=== PATIENT | male | born 1960 | race Two or more races ===

== ENCOUNTER 2017-06-08 05:53 | Inpatient (IN) | payer MEDICAID ==
[2017-06-08] VITALS (15 sets, daily range): BP systolic 42–170; BP diastolic 65–98
[~2017-06-08] VITALS: Ht 152.4 cm; Wt 47.0 kg
[2017-06-08] MEDS ORDERED: Bupivacaine 0.5% Inj 30 ml vial INJ ONE (06:46)
[2017-06-08] MEDS ORDERED: IBUPROFEN600 M1 PO (06:49)
[2017-06-08] MEDS ORDERED: Surgicel 4in x 8in TOPIC ONE (07:26)
[2017-06-08] MEDS ORDERED: fentaNYL 100 mcg/2 mL IV ONE (07:30)
[2017-06-08] MEDS ORDERED: Propofol 200mg/20ml IV ONE (07:30)
[2017-06-08] MEDS ORDERED: Midazolam 2mg/2ml Inj ONE (07:30)
[2017-06-08] MEDS ORDERED: Lidocaine 1% MPF 10mg/ml 5ml ONE (07:30)
[2017-06-08] MEDS ORDERED: Glycopyrrolate 0.2mg/ml 1ml Vial ONE (07:30)
[2017-06-08] MEDS ORDERED: Sodium Chloride 10ml vial INJ ONE (07:30)
[2017-06-08] MEDS ORDERED: Zemuron 50mg/5ml Inj IV ONE (07:30)
[2017-06-08] MEDS ORDERED: LR 1000ml 1,000 ML IVLG SCH (07:40)
--- NOTE | 2017-06-08 07:40 | Anethesia Preoperative Eval ---
Anesthesia Pre-op PMH/ROS General Date of Evaluation: Jun 08, 2017 Time of Evaluation: 07:36 Anesthesiologist: Armin ASA Score: ASA 2 Mallampati Score Class I : Soft palate, uvula, fauces, pillars visible Class II: Soft palate, uvula, fauces visible Class III: Soft palate, base of uvula visible Class IV: Only hard plate visible Mallampati Classification: Class II Surgeon: Sukh Diagnosis: R atrofic kidney Surgical Procedure: R laparoscopic nephrectomy Anesthesia History: none Social History: current smoker Family History: no anesthesia problems Allergies: Coded Allergies: PENICILLINS (Verified Allergy, Severe, hives, 06/08/17) Past Medical History Cardiovascular: Denies: HTN, CAD, CO, valve dz, arrhythmia, other Pulmonary: Denies: asthma, COPD, DARIEL, other Gastrointestinal/Genitourinary: Reports: GERD, other - kidney stones, Denies: CRI, ESRD Neurologic/Psychiatric: Denies: dementia, CVA, depression/anxiety, TIA, other Endocrine: 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 Exam Physician Exam Last Vital Signs Date Time Temp Pulse Resp B/P (MAP) Pulse Ox O2 Delivery O2 Flow Rate FiO2 06/08/17 06:17 97.7 59 17 128/84 96 Room Air Constitutional: NAD Neurologic: CN 2-12 intact Cardiovascular: RRR, no M/R/G Respiratory: CTA Gastrointestinal: S/NT/ND Airway Exam Mallampati Score: Class II MO: full Neck: flexible ROM: full Teeth: missing Dentures: no upper, no lower Anesthesia Pre-op A/P Labs see chart Studies Pre-op Studies: EKG - NSR Risk Assessment & Plan Assessment: ASA 2 Plan: GA with ETT Status Change Before Surgery: No Pre-Antibiotics Drug: Levoquine 500mg Given Within 1 Hr of Incision: Yes Time Given: 07:52 ALYCE SINGER M.D. Jun 08, 2017 07:39
[2017-06-08] MEDS ORDERED: Meperidine 50mg/ml Inj(FOR RIGORS ONLY) IV PRN (07:45)
[2017-06-08] MEDS ORDERED: DiphenhydrAMINE 50mg/ml Inj IVP PRN (07:45)
[2017-06-08] MEDS ORDERED: Metoclopramide 10mg/2ml Inj IVP PRN (07:45)
[2017-06-08] MEDS ORDERED: Midazolam 2mg/2ml Inj IVP PRN (07:45)
[2017-06-08] MEDS ORDERED: Hydromorphone 0.5mg/0.5ml inj IVP PRN (07:45)
[2017-06-08] MEDS ORDERED: Ketorolac 30mg Inj IV PRN (07:45)
--- NOTE | 2017-06-08 07:50 | Pre-Procedure Note/Attestation ---
Pre-Procedure Note/Attestation Complete Prior to Procedure Planned Procedure: right Procedure Narrative: Laparoscopic Nephrectomy Indications for Procedure Pre-Operative Diagnosis: renal stone Attestation I attest that I discussed the nature of the procedure; its benefits; risks and complications; and alternatives (and the risks and benefits of such alternatives ), prior to the procedure, with the patient (or the patient's legal dermatology sales representative). I attest that, if there was a reasonable possibility of needing a blood transfusion, the patient (or the patient's legal dermatology sales representative) was given the [facility] standardized written summary, pursuant to the [employer] Blood Safety Act ([place] Health and Safety Code # 1645, as amended). I attest that I re-evaluated the patient just prior to the surgery and that there has been no change in the patient's H&P, except as documented below: Edwar Luz MD Jun 08, 2017 07:50
--- NOTE | 2017-06-08 07:51 | Brief Operative Note ---
Immediate Post Operative Note Operative Note Pre-op Diagnosis: renal stone Procedure: right laparoscopic nephrectomy Post-op Diagnosis: same Post-op Diagnosis: same as pre-op Surgeon: Rohit Luz Anesthesia: general Specimen: yes Complications: none Condition: stable Fluids: 500 Estimated Blood Loss: minimal Implant(s) used?: No Edwar Luz MD Jun 08, 2017 07:51
--- NOTE | 2017-06-08 08:03 | Pre-Procedure Note/Attestation ---
Pre-Procedure Note/Attestation Complete Prior to Procedure Planned Procedure: not applicable Procedure Narrative: radical laparoscopic nephrectomy Indications for Procedure Pre-Operative Diagnosis: renal stone Attestation I attest that I discussed the nature of the procedure; its benefits; risks and complications; and alternatives (and the risks and benefits of such alternatives ), prior to the procedure, with the patient (or the patient's legal in store representative). I attest that, if there was a reasonable possibility of needing a blood transfusion, the patient (or the patient's legal in store representative) was given the [facility] standardized written summary, pursuant to the [employer] Blood Safety Act ([place] Health and Safety Code # 1645, as amended). I attest that I re-evaluated the patient just prior to the surgery and that there has been no change in the patient's H&P, except as documented below: Edwar Luz MD Jun 08, 2017 08:03
[2017-06-08] MEDS ORDERED: NS Irrig 1000ml IRRIG ONE (08:15)
[2017-06-08 10:44] LABS: BASOPHILS % (AUTO) 0.3 % (0.0-2.0); LYMPHOCYTES % (AUTO) 10.8 % (20.0-45.0); MEAN CORPUSCULAR HGB CONC 33.6 G/DL (32.0-36.0); MEAN CORPUSCULAR VOLUME 98 FL (80-99); MONOCYTES % (AUTO) 3.7 % (1.0-10.0); NEUTROPHILS % (AUTO) 84.2 % (45.0-75.0); PLATELET COUNT 241 K/UL (150-450); RED CELL DISTRIBUTION WIDTH 12.2 % (11.6-14.8); WHITE BLOOD COUNT 13.9 K/UL (4.8-10.8)
[2017-06-08 10:52] LABS: ANION GAP 6 mmol/L (5-15); CALCIUM 8.5 MG/DL (8.5-10.1); CARBON DIOXIDE 30 MMOL/L (21-32); CHLORIDE 105 MMOL/L (98-107); CREATININE 1.2 MG/DL (0.55-1.30); GLOMERULAR FILTRATION RATE > 60 mL/min (>60); POTASSIUM 3.9 MMOL/L (3.5-5.1); SODIUM 140 MMOL/L (136-145)
[2017-06-08] MEDS: D5 1/2NS w/KCl 20mEq 1,000 ML IV SCH (12:51)
[2017-06-08] MEDS ORDERED: ceFAZolin sod 1 GM in D5W 55 ML IV SCH (14:00)
--- NOTE | 2017-06-08 15:15 | History and Physical ---
History of Present Illness General Date patient seen: Jun 08, 2017 Reason for Hospitalization: renal failure large stagorn renal calculi Present Illness HPI 56-year old gentle man with pmhx nonfunctioning right kidney due to the large staghorn calculi and history of recurrent urinary tract infections presents to [facility] for evaluation for elective surgery namely a right kidney nephrectomy. The patient denies all other past medical history, denies diabetes and hypertension. 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 decision maker DAVID GUZMAN -[employer] IN [employer] Resuscitation status Full Code Advanced Directive on File Review of Systems Constitutional: Reports: no symptoms Eye: Reports: no symptoms ENT: Reports: no symptoms Respiratory: Reports: no symptoms Cardiovascular: Reports: no symptoms Gastrointestinal: Reports: no symptoms Genitourinary: Reports: dysuria, pain, urgency Musculoskeletal: Reports: no symptoms Skin: Reports: no symptoms Psychiatric: Reports: no symptoms Neurological: Reports: no symptoms Endocrine: Reports: no symptoms Hematologic/Lymphatic: Reports: no symptoms Physical Exam General Appearance: no apparent distress Lines, tubes and drains: peripheral HEENT: normocephalic, atraumatic, PERRL Neck: non-tender, normal alignment, supple, normal inspection Respiratory/Chest: chest wall non-tender, normal breath sounds, no respiratory distress, no accessory muscle use Breasts: no masses Cardiovascular/Chest: normal peripheral pulses, normal rate, regular rhythm, no JVD Abdomen: normal bowel sounds, non tender, soft, no organomegaly, no mass Genitourinary/Rectal: normal genital exam, normal rectal exam Extremities: normal range of motion, non-tender, normal inspection, no calf tenderness Skin Exam: normal pigmentation, warm/dry 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, no motor/sensory deficits Last 24 Hour Vital Signs Date Time Temp Pulse Resp B/P (MAP) Pulse Ox O2 Delivery O2 Flow Rate FiO2 06/08/17 12:00 97.9 60 18 132/89 100 Nasal Cannula 3.0 06/08/17 11:00 97.5 69 126/77 100 Nasal Cannula 3.0 06/08/17 10:55 64 15 42/92 100 Nasal Cannula 3.0 06/08/17 10:45 64 18 147/91 100 Nasal Cannula 3.0 06/08/17 10:30 64 20 139/90 100 Nasal Cannula 3.0 06/08/17 10:15 64 21 149/93 100 Nasal Cannula 3.0 06/08/17 10:00 60 20 163/96 100 Simple Mask 6.0 06/08/17 09:45 64 19 156/94 100 Simple Mask 6.0 06/08/17 09:30 71 20 164/97 100 Simple Mask 6.0 06/08/17 09:25 89 18 170/98 100 Simple Mask 6.0 06/08/17 09:18 97.8 76 22 162/84 100 Simple Mask 6.0 06/08/17 06:17 97.7 59 17 128/84 96 Room Air Intake and Output 06/08/17 06/09/17 19:00 07:00 Intake Total 100 ml Balance 100 ml Intake IV Total 100 ml Laboratory Tests Test 06/08/17 10:30 White Blood Count 13.9 K/UL (4.8-10.8) H Red Blood Count 4.70 M/UL (4.70-6.10) Hemoglobin 15.5 G/DL (14.2-18.0) Hematocrit 46.1 % (42.0-52.0) Mean Corpuscular Volume 98 FL (80-99) Mean Corpuscular Hemoglobin 33.0 PG (27.0-31.0) H Mean Corpuscular Hemoglobin Concent 33.6 G/DL (32.0-36.0) Red Cell Distribution Width 12.2 % (11.6-14.8) Platelet Count 241 K/UL (150-450) Mean Platelet Volume 7.0 FL (6.5-10.1) Neutrophils (%) (Auto) 84.2 % (45.0-75.0) H Lymphocytes (%) (Auto) 10.8 % (20.0-45.0) L Monocytes (%) (Auto) 3.7 % (1.0-10.0) Eosinophils (%) (Auto) 1.0 % (0.0-3.0) Basophils (%) (Auto) 0.3 % (0.0-2.0) Sodium Level 140 MMOL/L (136-145) Potassium Level 3.9 MMOL/L (3.5-5.1) Chloride Level 105 MMOL/L (98-107) Carbon Dioxide Level 30 MMOL/L (21-32) Anion Gap 6 mmol/L (5-15) Blood Urea Nitrogen 17 mg/dL (7-18) Creatinine 1.2 MG/DL (0.55-1.30) Estimat Glomerular Filtration Rate > 60 mL/min (>60) Glucose Level 136 MG/DL (74-106) H Calcium Level 8.5 MG/DL (8.5-10.1) Height (Feet): 5 Height (Inches): 0.00 Weight (Pounds): 103 Medications Current Medications Medications (Trade) Dose Ordered Sig/Yoli Route PRN Reason Start Time Stop Time Status Last Admin Dose Admin Acetaminophen (Tylenol) 650 mg Q4H PRN ORAL T>100.5 06/08/17 12:00 07/08/17 11:59 Acetaminophen (Tylenol) 650 mg Q6H PRN ORAL Mild Pain (Pain Scale 1-3) 06/08/17 12:00 07/08/17 11:59 Acetaminophen/ Hydrocodone Bitart ([place] 5/325) 1 tab Q4H PRN ORAL Moderate Pain (Pain Scale 4-6) 06/08/17 12:00 06/15/17 11:59 Dextrose/ Electrolytes 1,000 ml @ 100 mls/hr Q10H IV 06/08/17 13:00 07/08/17 12:59 06/08/17 12:51 Docusate Sodium (Colace) 100 mg TWICE A DAY ORAL 06/08/17 18:00 07/08/17 17:59 Hydromorphone HCl (Dilaudid) 1 mg Q3H PRN IVP SEV[ 06/08/17 12:00 06/15/17 11:59 Levofloxacin 100 ml @ 100 mls/hr Q24H IVPB 06/09/17 06:00 06/16/17 05:59 Temazepam (Restoril) 7.5 mg HSPRN PRN ORAL Insomnia 06/08/17 21:00 10/25/17 20:59 Assessment/Plan Status: stable, progressing Assessment/Plan Non functioning right kidney due to chronic staghorn calculi History of re-calcitrant and repeated urinary tract infection Plan Surgical consultation requested to evaluate and follow up Patient has elected for a right nephrectomy due to large staghorn calculi and non functioning right kidney Pain management Electrolyte replacement IV fluid hydration MADDIE NELSON Jun 08, 2017 15:15
[2017-06-08] MEDS: Docusate 100mg cap ORAL SCH (18:18)
[2017-06-08] MEDS ORDERED: Sodium Chloride 500ML 500 ML IV ONE ×2 (21:00→22:30)
[2017-06-09] VITALS (7 sets, daily range): BP systolic 120–156; BP diastolic 72–91
[2017-06-09] MEDS: Norco 5mg/325mg tab ORAL PRN ×2 (00:45→08:33)
[2017-06-09] MEDS: D5 1/2NS w/KCl 20mEq 1,000 ML IV SCH ×3 (00:47→21:21)
[2017-06-09] MEDS: Docusate 100mg cap ORAL SCH ×2 (08:33→18:05)
[2017-06-09 09:10] LABS: BASOPHILS % (AUTO) 0.5 % (0.0-2.0); EOSINOPHILS % (AUTO) 2.6 % (0.0-3.0); LYMPHOCYTES % (AUTO) 24.5 % (20.0-45.0); MEAN CORPUSCULAR HEMOGLOBIN 32.3 PG (27.0-31.0); MEAN CORPUSCULAR HGB CONC 32.9 G/DL (32.0-36.0); MEAN CORPUSCULAR VOLUME 98 FL (80-99); MEAN PLATELET VOLUME 7.1 FL (6.5-10.1); MONOCYTES % (AUTO) 7.3 % (1.0-10.0); PLATELET COUNT 218 K/UL (150-450); RED BLOOD COUNT 4.32 M/UL (4.70-6.10); RED CELL DISTRIBUTION WIDTH 12.3 % (11.6-14.8); WHITE BLOOD COUNT 7.4 K/UL (4.8-10.8)
--- NOTE | 2017-06-09 09:14 | Immediate Post-Op Evaluation ---
Immediate Post-Op Evalulation Immediate Post-Op Evalulation Procedure: Right Nephrectomy Date of Evaluation: Jun 09, 2017 Time of Evaluation: 09:00 IV Fluids: 1000 Blood Products: 0 Estimated Blood Loss: 50 Urinary Output: 0 Blood Pressure Systolic: 120 Blood Pressure Diastolic: 72 Pulse Rate: 78 Respiratory Rate: 14 O2 Sat by Pulse Oximetry: 99 Temperature (Fahrenheit): 98 Pain Score (1-10): 0 Nausea: No Vomiting: No Patient Status: awake, reacts, patent, extubated Hydration Status: adequate Bean Ramirez M.D. Jun 09, 2017 09:14
[2017-06-09 09:26] LABS: ALANINE AMINOTRANSFERASE 29 U/L (12-78); ALBUMIN/GLOBULIN RATIO 0.8 (1.0-2.7); ANION GAP 4 mmol/L (5-15); ASPARTATE AMINO TRANSFERASE 25 U/L (15-37); CALCIUM 7.8 MG/DL (8.5-10.1); CARBON DIOXIDE 30 MMOL/L (21-32); CHLORIDE 105 MMOL/L (98-107); CREATININE 1.2 MG/DL (0.55-1.30); GLOMERULAR FILTRATION RATE > 60 mL/min (>60); SODIUM 139 MMOL/L (136-145)
[2017-06-09 09:29] LABS: MAGNESIUM 1.9 MG/DL (1.8-2.4)
[2017-06-09] MEDS: HYDROmorphone 1mg/ml Carpuject IVP PRN ×2 (12:08→16:37)
[2017-06-09] MEDS ORDERED: Tubing IV Secondary IV ONE (15:41)
[2017-06-09] MEDS ORDERED: NS 500ML IV ONE (15:41)
[2017-06-09] MEDS: Hydromorphone 0.5mg/0.5ml inj IVP PRN (21:21)
--- NOTE | 2017-06-09 22:25 | Pulmonology Progress Note ---
Assessment/Plan Assessment/Plan Non functioning right kidney due to chronic staghorn calculi History of re-calcitrant and repeated urinary tract infection Plan Surgical consultation requested to evaluate and follow up Patient has elected for a right nephrectomy due to large staghorn calculi and non functioning right kidney Pain management Electrolyte replacement IV fluid hydration Subjective ROS Limited/Unobtainable: No Neurologic: Reports: weakness Allergies: Coded Allergies: PENICILLINS (Verified Allergy, Severe, hives, 06/08/17) Objective Last 24 Hour Vital Signs Date Time Temp Pulse Resp B/P (MAP) Pulse Ox O2 Delivery O2 Flow Rate FiO2 06/09/17 20:00 97.8 68 18 154/89 94 Room Air 06/09/17 16:00 97.5 60 20 156/91 99 Room Air 06/09/17 12:53 97.7 57 20 147/75 100 Room Air 3.0 06/09/17 09:14 78 14 99 06/09/17 08:00 97.2 59 19 132/82 99 Room Air 06/09/17 04:00 98.1 64 19 120/72 100 Nasal Cannula 3.0 06/09/17 00:00 97.6 68 18 133/79 99 Nasal Cannula 3.0 Intake and Output 06/09/17 06/10/17 19:00 07:00 Intake Total 1100 ml Balance 1100 ml Intake IV Total 1100 ml General Appearance: no acute distress HEENT: normocephalic, atraumatic, PERRL Respiratory/Chest: chest wall non-tender, normal breath sounds, no respiratory distress Cardiovascular: normal peripheral pulses, normal rate, regular rhythm, no JVD Abdomen: normal bowel sounds, soft, non tender, no organomegaly, non distended Genitourinary: normal external genitalia Extremities: no cyanosis Skin: lesions Neurologic/Psychiatric: 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 normal, no motor/sensory deficits Laboratory Tests 06/09/17 08:55: White Blood Count 7.4, Red Blood Count 4.32L, Hemoglobin 13.9L, Hematocrit 42.4 , Mean Corpuscular Volume 98, Mean Corpuscular Hemoglobin 32.3H, Mean Corpuscular Hemoglobin Concent 32.9, Red Cell Distribution Width 12.3, Platelet Count 218, Mean Platelet Volume 7.1, Neutrophils (%) (Auto) 65.0, Lymphocytes (% ) (Auto) 24.5, Monocytes (%) (Auto) 7.3, Eosinophils (%) (Auto) 2.6, Basophils ( %) (Auto) 0.5, Sodium Level 139, Potassium Level 4.0, Chloride Level 105, Carbon Dioxide Level 30, Anion Gap 4L, Blood Urea Nitrogen 13, Creatinine 1.2, Estimat Glomerular Filtration Rate > 60, Glucose Level 128H, Calcium Level 7.8L , Phosphorus Level 3.0, Magnesium Level 1.9, Total Bilirubin 1.0, Aspartate Amino Transf (AST/SGOT) 25, Alanine Aminotransferase (ALT/SGPT) 29, Alkaline Phosphatase 57, Total Protein 6.0L, Albumin 2.7L, Globulin 3.3, Albumin/ Globulin Ratio 0.8L Current Medications Medications (Trade) Dose Ordered Sig/Yoli Route PRN Reason Start Time Stop Time Status Last Admin Dose Admin Acetaminophen (Tylenol) 650 mg Q4H PRN ORAL T>100.5 06/08/17 12:00 07/08/17 11:59 Acetaminophen (Tylenol) 650 mg Q6H PRN ORAL Mild Pain (Pain Scale 1-3) 06/08/17 12:00 07/08/17 11:59 Acetaminophen/ Hydrocodone Bitart ([place] 5/325) 1 tab Q4H PRN ORAL Moderate Pain (Pain Scale 4-6) 06/08/17 12:00 06/15/17 11:59 06/09/17 08:33 Dextrose/ Electrolytes 1,000 ml @ 100 mls/hr Q10H IV 06/08/17 13:00 07/08/17 12:59 06/09/17 21:21 Docusate Sodium (Colace) 100 mg TWICE A DAY ORAL 06/08/17 18:00 07/08/17 17:59 06/09/17 18:05 Hydromorphone HCl (Dilaudid) 1 mg Q3H PRN IVP SEVERE PAIN 06/09/17 20:30 06/16/17 20:29 06/09/17 21:21 Levofloxacin 50 ml @ 50 mls/hr Q24H IVPB 06/10/17 06:00 06/17/17 05:59 Temazepam (Restoril) 7.5 mg HSPRN PRN ORAL Insomnia 06/08/17 21:00 06/15/17 20:59 MADDIE NELSON 19, 2017 22:25
[2017-06-10] MEDS: Norco 5mg/325mg tab ORAL PRN ×3 (02:14→19:55)
[2017-06-10 04:00] VITALS: BP 154/91
[2017-06-10] MEDS: D5 1/2NS w/KCl 20mEq 1,000 ML IV SCH (05:00)
[2017-06-10] MEDS: Levofloxacin 250mg/D5W 50ml IVPB SCH (05:16)
--- NOTE | 2017-06-10 07:40 | Pulmonology Progress Note ---
Assessment/Plan Assessment/Plan ASSESSMENT nonfunctioning R kidney with large staghorn recurrent UTI s/p R radical lap nephrectomy PLAN OF CARE MS floor s/p IVF abx pain management full liquid diet, monitor tolerance and advance as tolerated OOB as tolerated PT/OT IS while in bed Monitor voiding Wound care DVT prophylaxis bowel regimen Dulcolax already added by surgeon dc plan probably in am Subjective Allergies: Coded Allergies: PENICILLINS (Verified Allergy, Severe, hives, 06/08/17) Subjective leukocytosis resolved, afebrile voiding freely tolerates FL diet no BM yet Objective Last 24 Hour Vital Signs Date Time Temp Pulse Resp B/P (MAP) Pulse Ox O2 Delivery O2 Flow Rate FiO2 06/10/17 04:00 98.4 65 16 154/91 96 Room Air 06/09/17 23:57 97.4 66 16 153/86 94 Room Air 06/09/17 20:00 97.8 68 18 154/89 94 Room Air 06/09/17 16:00 97.5 60 20 156/91 99 Room Air 06/09/17 12:53 97.7 57 20 147/75 100 Room Air 3.0 06/09/17 09:14 78 14 99 06/09/17 08:00 97.2 59 19 132/82 99 Room Air General Appearance: no acute distress HEENT: normocephalic, atraumatic, anicteric, mucous membranes moist, PERRL Respiratory/Chest: chest wall non-tender, lungs clear, normal breath sounds, no accessory muscle use Cardiovascular: normal peripheral pulses, normal rate, no JVD Abdomen: normal bowel sounds, soft, non tender - mild distention, no organomegaly Extremities: no edema Neurologic/Psychiatric: no motor/sensory deficits, alert, oriented x 3, responsive Musculoskeletal: normal muscle bulk Laboratory Tests 06/09/17 08:55: White Blood Count 7.4, Red Blood Count 4.32L, Hemoglobin 13.9L, Hematocrit 42.4 , Mean Corpuscular Volume 98, Mean Corpuscular Hemoglobin 32.3H, Mean Corpuscular Hemoglobin Concent 32.9, Red Cell Distribution Width 12.3, Platelet Count 218, Mean Platelet Volume 7.1, Neutrophils (%) (Auto) 65.0, Lymphocytes (% ) (Auto) 24.5, Monocytes (%) (Auto) 7.3, Eosinophils (%) (Auto) 2.6, Basophils ( %) (Auto) 0.5, Sodium Level 139, Potassium Level 4.0, Chloride Level 105, Carbon Dioxide Level 30, Anion Gap 4L, Blood Urea Nitrogen 13, Creatinine 1.2, Estimat Glomerular Filtration Rate > 60, Glucose Level 128H, Calcium Level 7.8L , Phosphorus Level 3.0, Magnesium Level 1.9, Total Bilirubin 1.0, Aspartate Amino Transf (AST/SGOT) 25, Alanine Aminotransferase (ALT/SGPT) 29, Alkaline Phosphatase 57, Total Protein 6.0L, Albumin 2.7L, Globulin 3.3, Albumin/ Globulin Ratio 0.8L Current Medications Medications (Trade) Dose Ordered Sig/Yoli Route PRN Reason Start Time Stop Time Status Last Admin Dose Admin Acetaminophen (Tylenol) 650 mg Q4H PRN ORAL T>100.5 06/08/17 12:00 07/08/17 11:59 Acetaminophen (Tylenol) 650 mg Q6H PRN ORAL Mild Pain (Pain Scale 1-3) 06/08/17 12:00 07/08/17 11:59 Acetaminophen/ Hydrocodone Bitart ([place] 5/325) 1 tab Q4H PRN ORAL Moderate Pain (Pain Scale 4-6) 06/08/17 12:00 06/15/17 11:59 06/10/17 02:14 Dextrose/ Electrolytes 1,000 ml @ 100 mls/hr Q10H IV 06/08/17 13:00 07/08/17 12:59 06/09/17 21:21 Docusate Sodium (Colace) 100 mg TWICE A DAY ORAL 06/08/17 18:00 07/08/17 17:59 06/09/17 18:05 Hydromorphone HCl (Dilaudid) 1 mg Q3H PRN IVP SEVERE PAIN 06/09/17 20:30 06/16/17 20:29 06/09/17 21:21 Levofloxacin 50 ml @ 50 mls/hr Q24H IVPB 06/10/17 06:00 06/17/17 05:59 06/10/17 05:16 Temazepam (Restoril) 7.5 mg HSPRN PRN ORAL Insomnia 06/08/17 21:00 06/15/17 20:59 Anu Sullivan NP ([facility]) Jun 10, 2017 07:40
[2017-06-10 07:57] LABS: BASOPHILS % (AUTO) 0.7 % (0.0-2.0); EOSINOPHILS % (AUTO) 2.2 % (0.0-3.0); LYMPHOCYTES % (AUTO) 25.4 % (20.0-45.0); MEAN CORPUSCULAR HEMOGLOBIN 33.4 PG (27.0-31.0); MEAN CORPUSCULAR HGB CONC 34.4 G/DL (32.0-36.0); MEAN CORPUSCULAR VOLUME 97 FL (80-99); MEAN PLATELET VOLUME 7.5 FL (6.5-10.1); MONOCYTES % (AUTO) 9.2 % (1.0-10.0); NEUTROPHILS % (AUTO) 62.5 % (45.0-75.0); PLATELET COUNT 198 K/UL (150-450); RED BLOOD COUNT 4.12 M/UL (4.70-6.10); WHITE BLOOD COUNT 8.1 K/UL (4.8-10.8)
[2017-06-10 08:00] VITALS: BP 156/98
[2017-06-10] MEDS: Docusate 100mg cap ORAL SCH ×2 (08:02→18:20)
[2017-06-10] MEDS: Hydromorphone 0.5mg/0.5ml inj IVP PRN (08:03)
[2017-06-10 08:21] LABS: ALANINE AMINOTRANSFERASE 27 U/L (12-78); ALBUMIN/GLOBULIN RATIO 0.8 (1.0-2.7); ANION GAP 3 mmol/L (5-15); ASPARTATE AMINO TRANSFERASE 23 U/L (15-37); CALCIUM 8.5 MG/DL (8.5-10.1); CARBON DIOXIDE 32 MMOL/L (21-32); CHLORIDE 104 MMOL/L (98-107); CREATININE 1.1 MG/DL (0.55-1.30); CRP QUANT 4.5 mg/dL (0.00-0.90); GLOMERULAR FILTRATION RATE > 60 mL/min (>60); PHOSPHORUS 2.6 MG/DL (2.5-4.9); SODIUM 138 MMOL/L (136-145); TOTAL PROTEIN 6.6 G/DL (6.4-8.2)
[2017-06-10 09:30] LABS: ERYTHROCYTE SEDIMENTATION RATE 47 MM/HR (0-20)
[2017-06-10 12:00] VITALS: BP 166/97
[2017-06-10 16:00] VITALS: BP 148/89
[2017-06-10 20:00] VITALS: BP 159/98
[2017-06-11] VITALS: BP 149/86
[2017-06-11 04:00] VITALS: BP 155/96
[2017-06-11] MEDS: Levofloxacin 250mg/D5W 50ml IVPB SCH (05:23)
--- NOTE | 2017-06-11 07:05 | Pulmonology Progress Note ---
Assessment/Plan Assessment/Plan ASSESSMENT nonfunctioning R kidney with large staghorn recurrent UTI s/p R radical lap nephrectomy PLAN OF CARE MS floor s/p IVF abx pain management tolerates diet OOB ambulating voiding freely s discomfort PT/OT IS while in bed Wound care DVT prophylaxis bowel regimen discussed with surgeon dc today outpt fup with surgeon script provided for analgesic and stool softener discussed and evaluated by supervising physician Subjective Allergies: Coded Allergies: PENICILLINS (Verified Allergy, Severe, hives, 06/08/17) Subjective leukocytosis resolved, afebrile voiding freely tolerates diet ambulates Objective Last 24 Hour Vital Signs Date Time Temp Pulse Resp B/P (MAP) Pulse Ox O2 Delivery O2 Flow Rate FiO2 06/11/17 04:00 97.2 67 18 155/96 94 Room Air 06/11/17 00:00 97.4 65 17 149/86 94 Room Air 06/10/17 22:21 96 Nasal Cannula 2.0 28 06/10/17 22:21 Nasal Cannula 2.0 28 06/10/17 20:00 97.8 67 19 159/98 95 Room Air 06/10/17 16:00 97.9 62 19 148/89 93 Room Air 06/10/17 12:00 97.2 65 20 166/97 94 Room Air 06/10/17 08:02 97 Nasal Cannula 2.0 28 06/10/17 08:01 Nasal Cannula 2.0 28 06/10/17 08:00 97.9 67 20 156/98 96 Room Air Objective General Appearance: no acute distress HEENT: normocephalic, atraumatic, anicteric, mucous membranes moist, PERRL Respiratory/Chest: chest wall non-tender, lungs clear, normal breath sounds, no accessory muscle use Cardiovascular: normal peripheral pulses, normal rate, no JVD Abdomen: normal bowel sounds, soft, non tender - mild distention, no organomegaly Extremities: no edema Neurologic/Psychiatric: no motor/sensory deficits, alert, oriented x 3, responsive Musculoskeletal: normal muscle bulk Laboratory Tests 06/10/17 07:15: White Blood Count 8.1, Red Blood Count 4.12L, Hemoglobin 13.8L, Hematocrit 40.0L , Mean Corpuscular Volume 97, Mean Corpuscular Hemoglobin 33.4H, Mean Corpuscular Hemoglobin Concent 34.4, Red Cell Distribution Width 12.0, Platelet Count 198, Mean Platelet Volume 7.5, Neutrophils (%) (Auto) 62.5, Lymphocytes (% ) (Auto) 25.4, Monocytes (%) (Auto) 9.2, Eosinophils (%) (Auto) 2.2, Basophils ( %) (Auto) 0.7, Erythrocyte Sedimentation Rate 47H, Sodium Level 138, Potassium Level 4.0, Chloride Level 104, Carbon Dioxide Level 32, Anion Gap 3L, Blood Urea Nitrogen 8, Creatinine 1.1, Estimat Glomerular Filtration Rate > 60, Glucose Level 117H, Calcium Level 8.5, Phosphorus Level 2.6, Magnesium Level 2.0 , Total Bilirubin 0.6, Aspartate Amino Transf (AST/SGOT) 23, Alanine Aminotransferase (ALT/SGPT) 27, Alkaline Phosphatase 59, C-Reactive Protein, Quantitative 4.5H, Total Protein 6.6, Albumin 3.0L, Globulin 3.6, Albumin/ Globulin Ratio 0.8L Current Medications Medications (Trade) Dose Ordered Sig/Yoli Route PRN Reason Start Time Stop Time Status Last Admin Dose Admin Acetaminophen (Tylenol) 650 mg Q4H PRN ORAL T>100.5 06/08/17 12:00 07/08/17 11:59 Acetaminophen (Tylenol) 650 mg Q6H PRN ORAL Mild Pain (Pain Scale 1-3) 06/08/17 12:00 07/08/17 11:59 Acetaminophen/ Hydrocodone Bitart ([place] 5/325) 1 tab Q4H PRN ORAL Moderate Pain (Pain Scale 4-6) 06/08/17 12:00 06/15/17 11:59 06/10/17 19:55 Docusate Sodium (Colace) 100 mg TWICE A DAY ORAL 06/08/17 18:00 07/08/17 17:59 06/10/17 18:20 Hydromorphone HCl (Dilaudid) 1 mg Q3H PRN IVP SEVERE PAIN 06/09/17 20:30 06/16/17 20:29 06/10/17 08:03 Levofloxacin 50 ml @ 50 mls/hr Q24H IVPB 06/10/17 06:00 06/17/17 05:59 06/11/17 05:23 Temazepam (Restoril) 7.5 mg HSPRN PRN ORAL Insomnia 06/08/17 21:00 06/15/17 20:59 Nate ([facility])Anu NP Jun 11, 2017 07:05
[2017-06-11 08:15] LABS: BASOPHILS % (AUTO) 0.6 % (0.0-2.0); EOSINOPHILS % (AUTO) 3.6 % (0.0-3.0); LYMPHOCYTES % (AUTO) 22.1 % (20.0-45.0); MEAN CORPUSCULAR HEMOGLOBIN 31.9 PG (27.0-31.0); MEAN CORPUSCULAR HGB CONC 32.9 G/DL (32.0-36.0); MEAN CORPUSCULAR VOLUME 97 FL (80-99); MEAN PLATELET VOLUME 7.4 FL (6.5-10.1); MONOCYTES % (AUTO) 8.5 % (1.0-10.0); NEUTROPHILS % (AUTO) 65.3 % (45.0-75.0); PLATELET COUNT 232 K/UL (150-450); RED BLOOD COUNT 4.68 M/UL (4.70-6.10); WHITE BLOOD COUNT 6.6 K/UL (4.8-10.8)
[2017-06-11 08:30] VITALS: BP 148/85
[2017-06-11 08:34] LABS: ANION GAP 7 mmol/L (5-15); CALCIUM 9.2 MG/DL (8.5-10.1); CARBON DIOXIDE 30 MMOL/L (21-32); CHLORIDE 101 MMOL/L (98-107); CREATININE 1.2 MG/DL (0.55-1.30); GLOMERULAR FILTRATION RATE > 60 mL/min (>60); POTASSIUM 3.8 MMOL/L (3.5-5.1); SODIUM 138 MMOL/L (136-145)
[2017-06-11] MEDS: Docusate 100mg cap ORAL SCH (08:37)
[2017-06-11] MEDS ORDERED: NS 275ml ONE (09:23)
[2017-06-11] MEDS ORDERED: COLACE100 MG ORAL (10:49)
[2017-06-11] MEDS ORDERED: ACETAMINOPHEN-1 EAC1 ORAL (10:49)
[2017-06-11 12:14] VITALS: BP 142/84
--- NOTE | 2017-06-13 10:15 | Operative Note - Dictated ---
DATE OF OPERATION: 06/08/2017 PREOPERATIVE DIAGNOSIS: Nonfunctioning of the right kidney with large staghorn calculi. POSTOPERATIVE DIAGNOSIS: Nonfunctioning of the right kidney with large staghorn calculi. OPERATION: Laparoscopic radical nephrectomy, right. OPERATIVE SURGEON: Edwar Luz M.D. ANESTHESIA: General. FINDINGS: Nonfunctioning of the right kidney with kidney stone. INDICATION FOR SURGERY: The patient had a large staghorn with nonfunctioning right kidney and recurrent infections. Treatment options were explained to him in great length including all potential complications. He signed the consent. DESCRIPTION OF PROCEDURE: He was brought to the operating room, placed in right lateral decubital position, prepped and draped in a standard fashion. Hand port was placed through the infraumbilical incision and 2 additional 12 mm trocars were placed in the standard position. Dissection started with mobilizing the duodenum and the colon medially. The duodenum was severely adherent to the renal capsule. After sharp dissection, it was finally retracted, cavum was mobilized and renal pedicle was transected with the Endo-RYANNE as well as the ureter and the rest of the attachments to the upper pole and adrenals. Kidney was removed for pathologic examination. Further inspection of the adrenal showed little bit of close proximity of the dissection line to the lining of duodenum. Running 3-0 silk suture was placed to reinforce the duodenal serosa. After that, a Surgicel was placed into adrenal area and procedure was terminated. Estimated blood loss was approximately 50 mL. No other complications. Wound was closed in multiple layers and laura for the skin. Edwar Luz M.D. DR: Bala JOB#: [id number] CC: MANISH
--- NOTE | 2017-06-13 13:12 | Discharge Summary ---
Discharge Summary Hospital Course Date of Admission Jun 08, 2017 at 05:53 Date of Discharge Jun 11, 2017 at 12:30 Admitting Diagnosis PADMINI Gutierrez is a 56 year old male who was admitted on Jun 08, 2017 at 05: 53 for Unfunctional Kidney Hospital Course dc summary #[id number] Discharge Medications New Medications: Acetaminophen With Codeine (T#3) (Tylenol #3 Tab*) Y Tab 1 TAB ORAL Q4H PRN, #20 TAB Docusate Sodium* (Colace*) 100 Mg Capsule 100 MG ORAL TWICE A DAY, #30 CAP hold for diarrhea, loose stool Discharge Discharge Disposition Patient was discharged to Home () Discharge Diagnoses: Nate ([facility])Anu NP Jun 13, 2017 13:12
--- NOTE | 2017-06-14 10:30 | Discharge Summary 2 SIG ---
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 HOSPITAL STAY: The patient had undergone right radical laparoscopic nephrectomy on 06/08/2017. Course of recovery was uneventful. The patient initially with IV hydration. The patient was on antibiotic. Pain management was provided. Diet was slowly introduced, starting with liquid diet and advancing as tolerated. Antiemetic was provided as needed. The patient was encouraged to be out of bed and ambulate. The patient was encouraged to use incentive spirometer while in the bed. Wound care was provided. DVT prophylaxis initiated. Bowel regimen was instituted. Patient able to tolerate diet, voided without difficulties, urine clear, ambulated, pain controlled, small laparoscopic incisions clean , dry, intact, healing. The patient was stable for discharge home. Follow up as outpatient with the surgeon. FINAL DIAGNOSES: 1. Nonfunctioning right kidney with large staghorn. 2. Recurrent urinary tract infections. 3. Status post right radical laparoscopic nephrectomy on 06/08/2017. DISCHARGE MEDICATIONS: See medication reconciliation list. DISCHARGE INSTRUCTIONS: The patient was discharged home. FOLLOWUP: Follow up with the surgeon as outpatient. Edwar Luz M.D. [facility] NRadhaPRadha DR: JORGE A JOB#: [id number] CC: MANISH
== END 2017-06-11 12:30 | disposition home or self-care (01) | DRG 443 ==
LOC: SDSOVERFLO 05:53 → 3E 10:54
PROC: 0TT04ZZ Resection of Right Kidney, Percutaneous Endoscopic Approach (ICD-10-PCS; principal; 2017-06-08 07:30)
DX: N28.9 Disorder of kidney and ureter, unspecified (principal); E11.8 Type 2 diabetes mellitus with unspecified complications; N20.0 Calculus of kidney; K21.9 Gastro-esophageal reflux disease without esophagitis; N39.0 Urinary tract infection, site not specified; Z88.0 Allergy status to penicillin
CPT/HCPCS: 36415; 80048; 80053; 83735; 84100; 85025; 85651; 86140; 86850; 86900; 86901; 87081; 94003; 94150; 94760; J2250; J2765